=== PATIENT | male | born 1960 | race Caucasian/White ===

== ENCOUNTER 2018-09-08 00:46 | Observation (INO) | payer OTHER ==
[~2018-09-08] VITALS: Ht 170.2 cm; Wt 85.6 kg
[~2018-09-08 00:46] MED LIST: ALBIPROI INH; ALBU90OI INH; AMOCLA875 PO; ASPI325; ATEN50 PO; CARI350 PO; CEPH500 PO; CLOP75 PO; CODACE30 PO; CODGUAEL PO; COMBIVENT RESPIM4 GM INH; CYCL10; CYCL10 PO; DOCU100 PO; FLUT110OIA IH; GABA300 PO; GUAI100SY; GUAI600ER PO; HYDACE5; HYDACE5 PO; HYDMOR4 PO; IBUP800; KETO10 PO; LISI20 PO; Lotrisone Cream45 GM TOP; NAPR500; NAPR500 PO; NAPR500ERA; NAPR550 PO; NITR.4SL SL; Norco 10-325 T1 EACH PO; Norco 5-325 Ta1 EACH PO; OMEP20ER; OMEPRAZOLE MAGN20 MG PO; OXYACE5T PO; OXYACE7.5T PO; RA FISH OIL PO; ROPI1 PO; RXCODACET PO; RXCODGUASY PO; RXHYDMOR2 PO; RXNAPNA550 PO; RXOXYACE PO; RXTRAM50 PO; TAMS.4ER PO; TRAM50 PO; TRAZ50; Tegretol200 MG PO; VARE1 PO; Voltaren100 GM TOP; [UNRECOGNIZED DRUG - REMARK]
[2018-09-08 01:33] LABS: BASOPHILS ABSOLUTE AUTO 0.11 K/mm3 (0.00-0.23); BASOPHILS PERCENT AUTO 1 % (0-2); EOSINOPHILS ABSOLUTE AUTO 0.25 K/mm3 (0.00-0.68); EOSINOPHILS PERCENT AUTO 2 % (0-6); Hematocrit 46.4 % (37.0-53.0); Hemoglobin 15.1 g/dL (13.5-17.5); IMMATURE GRAN ABSOLUTE AUTO 0.07 K/mm3 (0.00-0.10); IMMATURE GRAN PERCENT AUTO 1 % (0-1); LYMPHOCYTES ABSOLUTE AUTO 2.95 K/mm3 (0.84-5.20); LYMPHOCYTES PERCENT AUTO 26 % (21-46); MONOCYTES ABSOLUTE AUTO 0.92 K/mm3 (0.16-1.47); MONOCYTES PERCENT AUTO 8 % (4-13); Mean Corpuscular HGB 29.4 pg (26.0-34.0); Mean Corpuscular HGB Conc 32.5 g/dL (31.5-36.5); Mean Corpuscular Volume 90 fL (80-100); NEUTROPHILS ABSOLUTE AUTO 6.89 K/mm3 (1.96-9.15); NEUTROPHILS PERCENT AUTO 62 % (41-73); Platelet Count 280 K/mm3 (150-400); RDW Coefficient Variation 14.4 % (11.7-14.2); RDW Standard Deviation 47.9 fL (35.1-46.3); Red Blood Cell Count 5.14 M/mm3 (4.30-5.90); White Blood Cell Count 11.19 K/mm3 (4.00-11.30)
[2018-09-08 01:48] LABS: Alanine Aminotransfer (ALT/SGP 43 U/L (12-78); Albumin, Blood 3.5 g/dL (3.4-5.0); Alk Phos 86 U/L (50-136); Anion Gap 8 mmol/L (6-16); Aspartate Aminotrans (AST/SGOT 26 U/L (12-37); Bilirubin, Total 0.2 mg/dL (0.1-1.0); Blood Urea Nitrogen 25 mg/dL (8-24); Bun/Creatinine Ratio 22.1 (12.0-20.0); CO2, Blood 25 mmol/L (21-32); Calcium, Blood 8.4 mg/dL (8.5-10.1); Chloride, Blood 107 mmol/L (98-108); Creatinine, Blood 1.13 mg/dL (0.60-1.20); Globulin, Blood 3.4 g/dL (2.2-4.0); Glomerular Filtration Rate >60 (60-); Glucose, Blood 132 mg/dL (70-99); Potassium, Blood 3.4 mmol/L (3.5-5.5); Sodium, Blood 140 mmol/L (136-145); Total Protein, Blood 6.9 g/dL (6.4-8.2); Troponin I <0.015 ng/mL (0.000-0.040)
[2018-09-08] MEDS ORDERED: OMEPRAZOLE MAGN20 MG PO (03:41)
[2018-09-08] MEDS ORDERED: [UNRECOGNIZED DRUG - OTHER] PO (03:43)
[2018-09-08] MEDS ORDERED: HORNY GOAT WEED PO (03:45)
[2018-09-08] MEDS ORDERED: ROPI1 PO (03:52)
[2018-09-08] MEDS ORDERED: LISI20 PO (17:33)
[2018-09-08] MEDS ORDERED: ASPI81CH PO (17:33)
[2018-09-08] MEDS ORDERED: ATOR20 PO (17:33)
== END 2018-09-08 18:10 | disposition home or self-care (01) ==
LOC: ER 00:46 → ICUW 00:47
PROVIDERS: Emergency Medicine
DX: R07.9 Chest pain, unspecified (principal); I10 Essential (primary) hypertension; E66.9 Obesity, unspecified; F17.210 Nicotine dependence, cigarettes, uncomplicated; K21.9 Gastro-esophageal reflux disease without esophagitis; E87.6 Hypokalemia; Z79.82 Long term (current) use of aspirin; Z79.899 Other long term (current) drug therapy
CPT/HCPCS: 36415; 71046; 78452; 80053; 83735; 84484; 85025; 85379; 90686; 93005; 93010; 93017; 96372; 99285-25; A9500; G0008; G0378; J0706; J1650; J2785

== ENCOUNTER 2019-04-06 01:38 | Emergency (ER) | payer OTHER ==
[~2019-04-06] VITALS: Ht 170.2 cm; Wt 81.7 kg
[~2019-04-06 01:38] MED LIST changes: +ASPI81CH PO; +ATOR20 PO; +HORNY GOAT WEED PO; +OMEP20ER PO; +[UNRECOGNIZED DRUG - OTHER] PO
[2019-04-06] MEDS ORDERED: Robaxin-750750 MG PO (04:18)
[2019-04-06] MEDS ORDERED: Percocet 7.5-31 EACH PO (04:18)
[2019-04-06] MEDS ORDERED: METPRE4DP PO (04:18)
== END 2019-04-06 05:27 | disposition home or self-care (01) ==
LOC: ER 01:38
DX: M51.16 Intervertebral disc disorders with radiculopathy, lumbar region (principal); K21.9 Gastro-esophageal reflux disease without esophagitis; I10 Essential (primary) hypertension; Z79.899 Other long term (current) drug therapy
CPT/HCPCS: 72100; 96372; 99283-25; J1100; J1170

== ENCOUNTER → 2019-08-20 | Outpatient (CLI) | payer OTHER ==
[~2019-08-20] MED LIST changes: +Lasix20 MG PO; +METPRE4DP PO; +Percocet 7.5-31 EACH PO; +Robaxin-750750 MG PO; +Ropinirole HCl2 MG PO
[2019-08-21 13:27] LABS: Stool Occult Bld Immuno 1 Negative (NEGATIVE); Stool Occult Bld Immuno 2 Negative (NEGATIVE)
== END | disposition home or self-care (01) ==
LOC: LAB SHORT 14:00 → LAB 14:00
PROVIDERS: Internal Medicine Gastroenterology
DX: Z12.11 Encounter for screening for malignant neoplasm of colon (principal)
CPT/HCPCS: 82274

== ENCOUNTER 2019-09-12 16:05 | Emergency (ER) | payer OTHER ==
[~2019-09-12] VITALS: Ht 170.2 cm; Wt 88.5 kg
[~2019-09-12 16:05] MED LIST changes: -Lasix20 MG PO; -Ropinirole HCl2 MG PO
[2019-09-12 17:10] LABS: BASOPHILS ABSOLUTE AUTO 0.07 K/mm3 (0.00-0.23); BASOPHILS PERCENT AUTO 1 % (0-2); EOSINOPHILS ABSOLUTE AUTO 0.23 K/mm3 (0.00-0.68); EOSINOPHILS PERCENT AUTO 2 % (0-6); Hematocrit 42.9 % (37.0-53.0); IMMATURE GRAN ABSOLUTE AUTO 0.24 K/mm3 (0.00-0.10); IMMATURE GRAN PERCENT AUTO 2 % (0-1); LYMPHOCYTES ABSOLUTE AUTO 2.22 K/mm3 (0.84-5.20); LYMPHOCYTES PERCENT AUTO 20 % (21-46); MONOCYTES ABSOLUTE AUTO 0.93 K/mm3 (0.16-1.47); MONOCYTES PERCENT AUTO 9 % (4-13); Mean Corpuscular HGB 29.4 pg (26.0-34.0); Mean Corpuscular HGB Conc 32.6 g/dL (31.5-36.5); Mean Corpuscular Volume 90 fL (80-100); Mean Platelet Volume 10.8 fL (9.1-12.4); NEUTROPHILS ABSOLUTE AUTO 7.17 K/mm3 (1.96-9.15); NEUTROPHILS PERCENT AUTO 66 % (41-73); Platelet Count 239 K/mm3 (150-400); RDW Standard Deviation 49.4 fL (35.1-46.3); Red Blood Cell Count 4.77 M/mm3 (4.30-5.90); White Blood Cell Count 10.86 K/mm3 (4.00-11.30)
[2019-09-12 17:29] LABS: Alanine Aminotransfer (ALT/SGP 38 U/L (12-78); Albumin, Blood 3.3 g/dL (3.4-5.0); Albumin/Globulin Ratio 1.1 (0.8-1.8); Alk Phos 81 U/L (50-136); Anion Gap 6 mmol/L (6-16); Aspartate Aminotrans (AST/SGOT 12 U/L (12-37); Bilirubin, Total 0.2 mg/dL (0.1-1.0); Blood Urea Nitrogen 23 mg/dL (8-24); Bun/Creatinine Ratio 21.5 (12.0-20.0); CO2, Blood 25 mmol/L (21-32); Calcium, Blood 8.5 mg/dL (8.5-10.1); Chloride, Blood 110 mmol/L (98-108); Creatinine, Blood 1.07 mg/dL (0.60-1.20); Glomerular Filtration Rate >60 (60-); Glucose, Blood 110 mg/dL (70-99); Potassium, Blood 3.6 mmol/L (3.5-5.5); Sodium, Blood 141 mmol/L (136-145); Total Protein, Blood 6.3 g/dL (6.4-8.2); Troponin I <0.015 ng/mL (0.000-0.040)
[2019-09-12] MEDS ORDERED: Ropinirole HCl2 MG PO (17:45)
[2019-09-12] MEDS ORDERED: Lasix20 MG PO (18:58)
== END 2019-09-12 19:58 | disposition home or self-care (01) ==
LOC: ER 16:05
PROVIDERS: Emergency Medicine
DX: R60.0 Localized edema (principal); K21.9 Gastro-esophageal reflux disease without esophagitis; I10 Essential (primary) hypertension; F17.200 Nicotine dependence, unspecified, uncomplicated; Z79.899 Other long term (current) drug therapy
CPT/HCPCS: 36415; 71046; 80053; 83880; 84484; 85025; 93005; 93010; 99284-25

== ENCOUNTER → 2019-09-26 | Outpatient (CLI) | payer OTHER ==
[~2019-09-26] MED LIST changes: +Lasix20 MG PO; +Ropinirole HCl2 MG PO
== END | disposition home or self-care (01) ==
LOC: LAB SHORT 07:42 → PLD 07:42
DX: D17.9 Benign lipomatous neoplasm, unspecified (principal)
CPT/HCPCS: 88304

== ENCOUNTER → 2020-11-17 | Outpatient (CLI) | payer OTHER | LOC: LAB 08:29 → LAB SHORT 08:29 | DX: L30.9 Dermatitis, unspecified (principal) | CPT/HCPCS: 88305; 88312; 88313 ==

== ENCOUNTER 2023-08-26 06:57 | Day surgery (SDC) | payer OTHER ==
[~2023-08-26] VITALS: Ht 167.6 cm; Wt 88.3 kg
[~2023-08-26 06:57] MED LIST changes: +ATOR40TA PO; +ATORVASTATIN CA20 MG PO; +Lisinopril2.5 MG PO; +NICO21TP TOP; +SILD50TA; +SILDENAFIL CIT100 MG PO; +STIOLTO RESPIMAT4 G1 INH; +TOPROL XL25 MG; +Ventolin/Prove6.7 GM
--- NOTE | 2023-08-26 08:56 | NUR ---
08/26/23 0856 Essie Mena LATE ENTRY. T.O. DONE AT [address] MORALEZ AT BEDSIDE IN PREPARATION FOR POPLITEAL/SCIATIC BLOCK. PATIENT DOZED OFF AND ON DURING PROCEDURE AND TOLERATED BLOCK WELL. SPO2 DID DIP DOWN TO 89-90% WHEN PATIENT WAS DOZING SO PT PLACED ON 3L O2 VIA NC. SPO2 STAYED BETWEEN 96-97% T/O REMAINDER OF PROCEDURE. KEPT PATIENT ON 3L O2 VIA NC UNTIL TRANSFER TO OR DUE TO PATIENT BEING DROWSY AND SLEEPING.
--- NOTE | 2023-08-26 09:12 | NUR ---
08/26/23 0912 Robert Hallman 1ST DOSE OF TXA STARTED IN OR BY DR MORALEZ AT 0900.
[2023-08-26 11:17] VITALS: BP 143/102
--- NOTE | 2023-08-26 12:37 | NUR ---
08/26/23 1237 Julius Kent IV REMOVED INTACT. SITE WNL. IV REMOVED BEFORE SECOND TXA DOSE. OKAY TO D/C WITHOUT SECOND TXA DOSE, PER DR. URIOSTEGUI.
== END 2023-08-26 12:20 | disposition home or self-care (01) ==
LOC: ORSCSDS 06:57
PROVIDERS: Podiatrist Foot & Ankle Surgery
PROC: 0L8P0ZZ Division of Left Lower Leg Tendon, Open Approach (ICD-10-PCS; principal; 2023-08-26 08:15)
PROC: 0SRG0JZ Replacement of Left Ankle Joint with Synthetic Substitute, Open Approach (ICD-10-PCS; principal; 2023-08-26 08:15)
DX: M19.172 Post-traumatic osteoarthritis, left ankle and foot (principal); E78.5 Hyperlipidemia, unspecified; K21.9 Gastro-esophageal reflux disease without esophagitis; Z87.891 Personal history of nicotine dependence; G47.33 Obstructive sleep apnea (adult) (pediatric); I10 Essential (primary) hypertension; J44.9 Chronic obstructive pulmonary disease, unspecified; Z79.899 Other long term (current) drug therapy
CPT/HCPCS: 73610; A9270; C1776; J0171; J0690; J0735; J1100; J1885; J2250; J2405; J2795; J3010; J7120

== ENCOUNTER → 2025-08-05 | Outpatient (CLI) | payer OTHER ==
[~2025-08-05] MED LIST changes: +HYDR1TAB94 PO
[2025-08-05 19:09] LABS: Alanine Aminotransfer (ALT/SGP 38 U/L (12-78); Albumin, Blood 3.9 g/dL (3.4-5.0); Albumin/Globulin Ratio 1.1 (0.8-1.8); Anion Gap 9 mmol/L (3-11); Aspartate Aminotrans (AST/SGOT 18 U/L (12-37); Bilirubin, Total 0.3 mg/dL (0.1-1.0); Blood Urea Nitrogen 18 mg/dL (8-24); CHOL/HDL RATIO 4.0; CO2, Blood 23 mmol/L (21-32); Calcium, Blood 9.2 mg/dL (8.5-10.1); Chloride, Blood 106 mmol/L (98-108); Cholesterol 223 mg/dL (50-200); Creatinine, Blood 0.95 mg/dL (0.60-1.20); Globulin, Blood 3.6 g/dL (2.2-4.0); Glucose, Blood 109 mg/dL (70-99); HDL Cholesterol 56 mg/dL (>39); LDL/HDL RATIO 2.3; Low Density Lipoprotein Chol 130 mg/dL (0-110); Potassium, Blood 4.1 mmol/L (3.5-5.5); Prostate Specific Antigen 1.220 ng/mL (0.000-4.000); Sodium, Blood 134 mmol/L (136-145); Total Protein, Blood 7.5 g/dL (6.4-8.2); Triglycerides 186 mg/dL (30-160); Very Low Density Lipoprot Chol 37 mg/dL (6-32)
== END ==
LOC: LAB SHORT 11:30 → LAB 11:30
PROVIDERS: Family Medicine
DX: Z12.5 Encounter for screening for malignant neoplasm of prostate (principal); E78.2 Mixed hyperlipidemia; I12.9 Hypertensive chronic kidney disease with stage 1 through stage 4 chronic kidney disease, or unspecified chronic kidney disease; R73.9 Hyperglycemia, unspecified
CPT/HCPCS: 80053; 80061; 83036; G0103

== ENCOUNTER 2025-08-22 13:08 | Emergency (ER) | payer OTHER ==
[~2025-08-22] VITALS: Ht 167.6 cm; Wt 81.7 kg
[2025-08-22 13:24] VITALS: BP 142/101
== END 2025-08-22 15:00 | disposition home or self-care (01) ==
LOC: ER 13:08
DX: S51.812A Laceration without foreign body of left forearm, initial encounter (principal); W31.9XXA Contact with unspecified machinery, initial encounter; Z87.891 Personal history of nicotine dependence; Z88.8 Allergy status to other drugs, medicaments and biological substances
CPT/HCPCS: 12002; 99282-25